=== PATIENT | female | born 1990 | race Caucasian/White ===

== ENCOUNTER 2022-06-20 15:00 | Emergency (ER) | payer OTHER ==
[~2022-06-20] VITALS: Ht 160 cm; Wt 93.0 kg
[2022-06-20] MEDS ORDERED: CRUTCHES XX (20:40)
[2022-06-20] MEDS ORDERED: HYDROCODON-ACE1 EA10 PO (20:40)
== END 2022-06-20 21:10 | disposition home or self-care (01) ==
LOC: ED 15:00
DX: M23.91 Unspecified internal derangement of right knee (principal); Z88.0 Allergy status to penicillin; Z91.048 Other nonmedicinal substance allergy status
CPT/HCPCS: 73562; 99283-25; A9270